=== PATIENT | female | born 1975 | race African-American/Black ===

== ENCOUNTER 2017-03-17 20:44 | Emergency (ER) | payer MEDICAID, OTHER ==
[~2017-03-17] VITALS: Ht 172.7 cm; Wt 85.1 kg
[~2017-03-17 20:44] MED LIST: IBUP800T23 PO; MMW SS; PENI500T PO; ULTR50TA PO; ZITH250T PO
[2017-03-17 20:46] VITALS: BP 148/92; PULSE 102; RESP 16; TEMP 98.9; O2SAT 100
[2017-03-17 21:13] LABS: BLOOD, URINE LARGE (NEG); GLUCOSE,URINE NEG (NEG); KETONE, URINE NEG (NEG); NITRITE,URINE POS (NEG)
[2017-03-17 21:16] LABS: URINE COLOR YELLOW (YELLW/STRAW)
[2017-03-17 21:17] LABS: BACTERIA, URINE MANY /hpf; MUCUS URINE FEW /lpf (OCC); RBC, URINE 15-19 /hpf (0-3); WBC, URINE 100-200 /hpf (0-5)
[2017-03-17 21:18] LABS: COMMENT (UR) CULTURE INDICATED; CULTURE IF INDICATED CULTURE INDICATED
[2017-03-17] MEDS ORDERED: CLON0.1T PO (21:29)
[2017-03-17] MEDS ORDERED: PERC10TA27 PO (21:29)
[2017-03-17] MEDS ORDERED: PHENAZOPYRIDINE HCL 100 MG TAB PO ONE (23:30)
[2017-03-17] MEDS ORDERED: IBUPROFEN 800 MG TAB PO ONE (23:30)
[2017-03-17] MEDS ORDERED: LEVOFLOXACIN 500 MG TAB PO ONE (23:30)
--- NOTE | 2017-03-17 23:35 | PD ---
HPI Chief Complaint: Complaint Time Seen by Provider: 23:34 Travel History International Travel<30 days: No Contact w/Intl Traveler<30days: No Traveled to known affect area: No History of Present Illness HPI 41-year-old female presents to the emergency department for complaint of one month of urinary frequency and dysuria. Patient started developing abdominal discomfort more recently in 5 decided to come to the emergency room for evaluation. No vaginal discharge or vaginal bleeding. Subjective fever and chills. Nausea without vomiting. Patient rates her discomfort with urination 9 /10 intensity. Patient denies . Patient concerned that she might have a communicable disease. No vaginal discharge or vaginal bleeding. PFSH Past Medical History Asthma: Yes Depression: Yes (FROM HUSBANDS ) Diminished Hearing: No Hypertension: Yes Medical other: Yes (BACK PAIN) Immunizations Current: Yes Tetanus Vaccination: Unknown Influenza Vaccination: No ?: Unknown LMP: 03/01/17 : 7 Para: 5 Miscarriage: 1 : 1 Past Surgical History Surgical History: No Previous Surgery Social History Alcohol Use: Yes (SOCIALLY) Tobacco Use: Yes Substance Use: Yes (MARIJUANA) Allergies-Medications (Allergen,Severity, Reaction): Coded Allergies: aspirin (Unverified Allergy, Severe, EYE DISTURBANCES, 03/17/17) Reported Meds & Prescriptions Reported Meds & Active Scripts Active Ibuprofen 800 Mg Tab 800 Mg PO Q8H PRN Pyridium (Phenazopyridine HCl) 100 Mg Tab 100 Mg PO Q8H PRN Cipro (Ciprofloxacin HCl) 500 Mg Tab 500 Mg PO BID 10 Days Reported Clonidine (Clonidine HCl) 0.1 Mg Tab 0.1 Mg PO BID Percocet (Oxycodone-Acetaminophen) 10-325 mg Tab 1 Tab PO Q6H PRN Physical Exam Narrative GENERAL: Well-developed well-nourished female in no acute distress no respiratory distress SKIN: Warm and dry. HEAD: Normocephalic. EYES: No scleral icterus. No injection or drainage. NECK: Supple, trachea midline. No JVD or lymphadenopathy. CARDIOVASCULAR: Regular rate and rhythm without murmurs, gallops, or rubs. RESPIRATORY: Breath sounds equal bilaterally. No accessory muscle use. GASTROINTESTINAL: Abdomen soft, non-tender, nondistended. MUSCULOSKELETAL: No cyanosis, or edema. BACK: Nontender without obvious deformity. No CVA tenderness. Data Data Last Documented VS Vital Signs Date Time Temp Pulse Resp B/P (MAP) Pulse Ox O2 Delivery O2 Flow Rate FiO2 03/17/17 23:59 74 20 145/90 (108) 98 03/17/17 20:46 98.9 Orders Orders Urinalysis - C+S If Indicated (03/17/17 20:59) Ed Urine Pregnancytest Poc (03/17/17 20:59) Urine Culture (03/17/17 21:00) Levofloxacin (Levaquin) (03/17/17 23:30) Phenazopyridine (Pyridium) (03/17/17 23:30) Ibuprofen (Motrin) (03/17/17 23:30) Labs Laboratory Tests Test 03/17/17 21:00 Urine Color YELLOW Urine Turbidity CLEAR Urine pH 6.0 Urine Specific [place] 1.017 Urine Protein 30 mg/dL Urine Glucose (UA) NEG mg/dL Urine Ketones NEG mg/dL Urine Occult Blood LARGE Urine Nitrite POS Urine Bilirubin NEG Urine Leukocyte Esterase MOD Urine RBC 15-19 /hpf Urine WBC 100-200 /hpf Urine Squamous Epithelial Cells 6-8 /hpf Urine Bacteria MANY /hpf Urine Mucus FEW /lpf Microscopic Urinalysis Comment CULTURE INDICATED MDM Medical Decision Making Medical Screen Exam Complete: Yes Emergency Medical Condition: Yes Medical Record Reviewed: Yes Interpretation(s) UA: Positive nitrites positive leukocyte Estrace positive white blood cells positive bacteria culture indicated POC hCG: negative Differential Diagnosis Dysuria, UTI, pyelonephritis, diverticulitis, colitis, ectopic Narrative Course Patient with markedly abnormal urinalysis nontender abdomen without guarding or rebound; patient noted on in triage to have mildly elevated white cell count otherwise vital sounds grossly within normal range: Patient given first dose of oral antibiotic in the emergency department along with peridium and weight- based ibuprofen Diagnosis Primary Impression: UTI (urinary tract infection) Referrals: Primary Care Physician call for appointment Patient Instructions: General Instructions Med/Other Pt SpecificInfo: Prescription(s) given Scripts Ibuprofen (Ibuprofen) 800 Mg Tab 800 MG PO Q8H Y for PAIN GREATER THAN 5, #12 TAB 0 Refills Prov: Natalee Seth MD 03/17/17 Phenazopyridine (Pyridium) 100 Mg Tab 100 MG PO Q8H Y for DYSURIA, #6 TAB 0 Refills Prov: Natalee Seth MD 03/17/17 Ciprofloxacin (Cipro) 500 Mg Tab 500 MG PO BID for Infection for 10 Days, #20 TAB 0 Refills Prov: Natalee Seth MD 03/17/17 Disposition: 01 DISCHARGE HOME Condition: Stable Natalee Seth MD Mar 17, 2017 23:35
[2017-03-17] MEDS ORDERED: CIPR-9 PO (23:37)
[2017-03-17] MEDS ORDERED: IBUP1TAB7 PO (23:37)
[2017-03-17] MEDS ORDERED: PHEN0.4T PO (23:37)
[2017-03-17 23:59] VITALS: BP 145/90
== END 2017-03-18 | disposition home or self-care (01) ==
LOC: PHED 20:44
DX: N39.0 Urinary tract infection, site not specified (principal); B96.20 Unspecified Escherichia coli [E. coli] as the cause of diseases classified elsewhere; I10 Essential (primary) hypertension; Z72.0 Tobacco use
CPT/HCPCS: 81001; 84703; 87077; 87086; 87186; 99284

== ENCOUNTER 2017-07-11 21:20 | Emergency (ER) | payer OTHER ==
[~2017-07-11] VITALS: Ht 175.3 cm; Wt 87.9 kg
[~2017-07-11 21:20] MED LIST changes: +CIPR-9 PO; +CLON0.1T PO; +IBUP1TAB7 PO; -IBUP800T23 PO; -MMW SS; -PENI500T PO; +PERC10TA27 PO; +PHEN0.4T PO; -ULTR50TA PO; -ZITH250T PO
[2017-07-11 21:30] VITALS: BP 154/105; PULSE 113; RESP 20; TEMP 98.2; O2SAT 99
[2017-07-11] MEDS ORDERED: ALBU0.63 NEB (22:18)
[2017-07-11] MEDS ORDERED: SODIUM CHLORIDE 0.9% FLUSH 10 ML FLUSH IVF PRN (22:30)
--- NOTE | 2017-07-11 22:45 | RADRPT ---
EXAM DATE/TIME: 07/11/2017 22:24 [facility] COMPARISON: CHEST PA & LAT, October 05, 2012, 10:37. INDICATIONS : Chest pain. MEDICAL HISTORY : Scoliosis. SURGICAL HISTORY : None. ENCOUNTER: Initial ACUITY: 2 days PAIN SCORE: 7/10 LOCATION: Bilateral chest superior FINDINGS: PA and lateral views of the chest demonstrate a normal-sized cardiac silhouette. There is no effusion , consolidation, or pneumothorax. The bones and soft tissues demonstrate no acute abnormality. CONCLUSION: Normal chest x-ray. Alvarado Casey MD on July 11, 2017 at 22:42 Board Certified Radiologist. This report was verified electronically.
[2017-07-11 23:03] LABS: BILIRUBIN, URINE NEG (NEG); BLOOD, URINE LARGE (NEG); GLUCOSE,URINE NEG (NEG); KETONE, URINE NEG (NEG); NITRITE,URINE NEG (NEG); URINE LEUKOCYTE ESTERASE NEG (NEG)
[2017-07-11 23:06] VITALS: RESP 16; O2SAT 100
[2017-07-11 23:07] VITALS: BP_SYST 184; BP_SYST 192; BP_DIAS 95; BP_DIAS 97; PULSE 114; RESP 16; O2SAT 100
[2017-07-11 23:24] LABS: BASOPHIL # 0.3 TH/MM3 (0-0.2); BASOPHIL % 3.4 % (0.0-2.0); EOSINOPHIL % 0.4 % (0.0-4.0); HEMATOCRIT 39.4 % (35.0-46.0); HEMOGLOBIN 13.2 GM/DL (11.6-15.3); LYMPH % 13.3 % (9.0-44.0); LYMPHOCYTE # 1.3 TH/MM3 (1.0-4.8); MEAN CORPUSCULAR HEMOGLOBIN 31.1 PG (27.0-34.0); MEAN CORPUSCULAR HGB CONC 33.4 % (32.0-36.0); MEAN PLATELET VOLUME 8.8 FL (7.0-11.0); MONO % 2.7 % (0.0-8.0); MONOCYTE # 0.3 TH/MM3 (0-0.9); NEUT % 80.2 % (16.0-70.0); PLATELET COUNT 228 TH/MM3 (150-450); RED BLOOD COUNT 4.23 MIL/MM3 (4.00-5.30); RED CELL DISTRIBUTION WIDTH 13.8 % (11.6-17.2); WHITE BLOOD COUNT 9.9 TH/MM3 (4.0-11.0)
[2017-07-11 23:32] LABS: MUCUS URINE FEW /lpf (OCC); URINE COLOR YELLOW (YELLW/STRAW); WBC, URINE 0-2 /hpf (0-5)
[2017-07-11 23:33] LABS: AMORPHOUS SEDIMENT, URINE FEW; RBC, URINE 15-19 /hpf (0-3)
[2017-07-11 23:37] LABS: CHLORIDE 106 MEQ/L (98-107); SODIUM (NA) 138 MEQ/L (136-145)
[2017-07-11 23:40] LABS: BICARBONATE 23.1 MEQ/L (21.0-32.0); BLOOD UREA NITROGEN 16 MG/DL (7-18); CALCIUM 8.4 MG/DL (8.5-10.1); GLUCOSE,RANDOM 152 MG/DL (74-106); MAGNESIUM 2.2 MG/DL (1.5-2.5)
[2017-07-11 23:44] LABS: CREATININE 0.99 MG/DL (0.50-1.00); GLOMERULAR FILTRATION RATE 75 ML/MIN (>89)
[2017-07-11 23:45] LABS: INTERNATIONAL NORMALIZED RATIO 0.9 RATIO; PROTHROMBIN TIME - PATIENT 9.4 SEC (9.8-11.6)
[2017-07-11 23:48] LABS: TROPONIN I LESS THAN 0.02 NG/ML (0.02-0.05)
[2017-07-12] MEDS ORDERED: SODIUM CHLORID 0.9% 500 ML INJ 500 ML IV ONE
[2017-07-12 00:37] VITALS: BP 152/73; PULSE 97; RESP 14; O2SAT 99
[2017-07-12] MEDS ORDERED: ZITHTAB PO (00:49)
[2017-07-12] MEDS ORDERED: NORV2.5T PO (00:49)
[2017-07-12] MEDS ORDERED: VENTAER INH (00:49)
[2017-07-12] MEDS ORDERED: MEDR4PAK PO (00:49)
--- NOTE | 2017-07-12 00:49 | PD ---
HPI Chief Complaint: Chest Pain Time Seen by Provider: 22:19 Travel History International Travel<30 days: No Contact w/Intl Traveler<30days: No Traveled to known affect area: No History of Present Illness HPI 41-year-old female presents to the emergency department for chest discomfort. Patient also complains of cough congestion sinus pressure drainage. Patient noted to have elevated blood pressure. Patient concerned also about shortness of breath and wheezing states that she feels she has been exposed to mold in her household. PFSH Past Medical History Narrative Medical Depression hypertension tobacco use alcohol use marijuana use; nursing notes reviewed Asthma: Yes Depression: Yes (FROM HUSBANDS ) Diminished Hearing: No Hypertension: Yes Immunizations Current: Yes Tetanus Vaccination: Unknown Influenza Vaccination: No ?: Not LMP: 06/24/17 : 7 Para: 5 Miscarriage: 1 : 1 Past Surgical History Oral Surgery: Yes (WISDOM TEETH) Social History Alcohol Use: Yes (SOCIALLY) Tobacco Use: Yes (2 CIGARS/DAY) Substance Use: Yes (MARIJUANA) Allergies-Medications (Allergen,Severity, Reaction): Coded Allergies: aspirin (Unverified Allergy, Severe, EYE DISTURBANCES, 07/11/17) PT STATES : "IT'S BEEN A LONG TIME SINCE I HAD ASPIRIN SO I'M NOT SURE IF I'M REALLY ALLERGIC TO IT OR NOT" Reported Meds & Prescriptions Reported Meds & Active Scripts Active Zithromax Z-Fransisco (Azithromycin) 250 Mg Dspk 250 Mg PO DIRECTED 500 MG (2 tabs) day 1, then 1 tab days 2-5. Medrol Dosepak (Methylprednisolone) 4 Mg Dspk 4 Mg PO DIRECTED Per Pharmacist direction Ventolin Hfa 18 GM Inh (Albuterol Sulfate) 90 Mcg/Act Aer 2 Puff INH Q4-6H PRN Norvasc (Amlodipine Besylate) 2.5 Mg Tab 2.5 Mg PO DAILY Reported Albuterol Neb (Albuterol Sulfate) 0.63 Mg/3 Ml Neb 0.63 Mg NEB Q4HR NEB PRN Clonidine (Clonidine HCl) 0.1 Mg Tab 0.1 Mg PO BID Review of Systems Except as stated in HPI: all other systems reviewed are Neg Physical Exam Narrative GENERAL: Well-developed well-nourished female no acute distress no respiratory distress SKIN: Warm and dry. HEAD: Normocephalic. EYES: No scleral icterus. No injection or drainage. NECK: Supple, trachea midline. No JVD or lymphadenopathy. CARDIOVASCULAR: Regular rate and rhythm without murmurs, gallops, or rubs. RESPIRATORY: Breath sounds equal bilaterally. No accessory muscle use. GASTROINTESTINAL: Abdomen soft, non-tender, nondistended. MUSCULOSKELETAL: No cyanosis, or edema. BACK: Nontender without obvious deformity. No CVA tenderness. Data Data Last Documented VS Vital Signs Date Time Temp Pulse Resp B/P (MAP) Pulse Ox O2 Delivery O2 Flow Rate FiO2 07/12/17 00:50 07/12/17 00:37 97 14 99 Room Air 07/11/17 21:30 98.2 Orders Orders Electrocardiogram (07/11/17 ) Basic Metabolic Panel (Bmp) (07/11/17 22:19) B-Type Natriuretic Peptide (07/11/17 22:19) Ckmb (Isoenzyme) Profile (07/11/17 22:19) Complete Blood Count With Diff (07/11/17 22:19) Magnesium (Mg) (07/11/17 22:19) Prothrombin Time / Inr (Pt) (07/11/17 22:19) Act Partial Throm Time (Ptt) (07/11/17 22:19) Troponin I (07/11/17 22:19) Ecg Monitoring (07/11/17 22:19) Bilateral Bp Monitoring (07/11/17 22:19) Iv Access Insert/Monitor (07/11/17 22:19) Oximetry (07/11/17 22:19) Oxygen Administration (07/11/17 22:19) Sodium Chloride 0.9% Flush (Ns Flush) (07/11/17 22:30) Chest, Pa & Lat (07/11/17 22:19) Urinalysis - C+S If Indicated (07/11/17 22:19) Ed Urine Pregnancytest Poc (07/11/17 22:19) CKMB (07/11/17 23:00) CKMB% (07/11/17 23:00) Sodium Chlorid 0.9% 500 Ml Inj (Ns 500 M (07/12/17 00:00) Ed Discharge Order (07/12/17 00:46) Labs Laboratory Tests Test 07/11/17 22:31 07/11/17 23:00 Urine Color YELLOW Urine Turbidity CLEAR Urine pH 6.0 Urine Specific [place] 1.017 Urine Protein NEG mg/dL Urine Glucose (UA) NEG mg/dL Urine Ketones NEG mg/dL Urine Occult Blood LARGE Urine Nitrite NEG Urine Bilirubin NEG Urine Leukocyte Esterase NEG Urine RBC 15-19 /hpf Urine WBC 0-2 /hpf Urine Squamous Epithelial Cells 6-8 /hpf Urine Amorphous Sediment FEW Urine Mucus FEW /lpf Microscopic Urinalysis Comment CULT NOT INDICATED White Blood Count 9.9 TH/MM3 Red Blood Count 4.23 MIL/MM3 Hemoglobin 13.2 GM/DL Hematocrit 39.4 % Mean Corpuscular Volume 93.0 FL Mean Corpuscular Hemoglobin 31.1 PG Mean Corpuscular Hemoglobin Concent 33.4 % Red Cell Distribution Width 13.8 % Platelet Count 228 TH/MM3 Mean Platelet Volume 8.8 FL Neutrophils (%) (Auto) 80.2 % Lymphocytes (%) (Auto) 13.3 % Monocytes (%) (Auto) 2.7 % Eosinophils (%) (Auto) 0.4 % Basophils (%) (Auto) 3.4 % Neutrophils # (Auto) 8.0 TH/MM3 Lymphocytes # (Auto) 1.3 TH/MM3 Monocytes # (Auto) 0.3 TH/MM3 Eosinophils # (Auto) 0.0 TH/MM3 Basophils # (Auto) 0.3 TH/MM3 CBC Comment DIFF FINAL Differential Comment Prothrombin Time 9.4 SEC Prothromb Time International Ratio 0.9 RATIO Activated Partial Thromboplast Time 26.6 SEC Blood Urea Nitrogen 16 MG/DL Creatinine 0.99 MG/DL Random Glucose 152 MG/DL Calcium Level 8.4 MG/DL Magnesium Level 2.2 MG/DL Sodium Level 138 MEQ/L Potassium Level 3.6 MEQ/L Chloride Level 106 MEQ/L Carbon Dioxide Level 23.1 MEQ/L Anion Gap 9 MEQ/L Estimat Glomerular Filtration Rate 75 ML/MIN Total Creatine Kinase 147 U/L Creatine Kinase MB 0.9 NG/ML Troponin I LESS THAN 0.02 NG/ML B-Type Natriuretic Peptide 32 PG/ML MDM Medical Decision Making Medical Screen Exam Complete: Yes Emergency Medical Condition: Yes Medical Record Reviewed: Yes Interpretation(s) Last Impressions Chest X-Ray 07/11/17 6379 Signed Impressions: Service Date/Time: Tuesday, July 11, 2017 22:24 - CONCLUSION: Normal chest x-ray. Alvarado Casey MD CBC & BMP Diagram 07/11/17 23:00 Calcium Level 8.4 L, Magnesium Level 2.2 Vital Signs Date Time Temp Pulse Resp B/P (MAP) Pulse Ox O2 Delivery O2 Flow Rate FiO2 07/12/17 00:50 07/12/17 00:37 97 14 152/73 (99) 99 Room Air 07/11/17 23:07 114 16 192/95 (127) 100 Room Air 184/97 (126) 07/11/17 23:06 100 Room Air 07/11/17 23:06 16 100 Room Air 07/11/17 22:18 Room Air 07/11/17 21:30 98.2 113 20 154/105 (121) 99 Differential Diagnosis Chest pain atypical chest pain bronchitis pneumonia PE uncontrolled hypertension Narrative Course Specimens collected and sent for resulting lab values found to be in normal range Patient stable for outpatient management start on antihypertensive for elevation of blood pressure encouraged to not use decongestants Diagnosis Primary Impression: Bronchitis Additional Impression: Unspecified essential hypertension Referrals: Primary Care Physician 2 days Patient Instructions: General Instructions Additional Instructions: Increase fluid hydration Take medications as prescribed Return to the emergency department for any concerns or change in condition No work 1 day Take acetaminophen/Tylenol as needed for fever 100.4F or greater Take blood pressure medication as prescribed Follow-up with your primary care provider Med/Other Pt SpecificInfo: Prescription(s) given Scripts Amlodipine (Norvasc) 2.5 Mg Tab 2.5 MG PO DAILY for Blood Pressure Management, #30 TAB 0 Refills Prov: Natalee Seth MD 07/12/17 Azithromycin (Zithromax Z-Fransisco) 250 Mg Dspk 250 MG PO DIRECTED for Infection, #1 DSPK 0 Refills 500 MG (2 tabs) day 1, then 1 tab days 2-5. Prov: Natalee Seth MD 07/12/17 Methylprednisolone Dosepak (Medrol Dosepak) 4 Mg Dspk 4 MG PO DIRECTED, #1 DSPK 0 Refills Per Pharmacist direction Prov: Natalee Seth MD 07/12/17 Albuterol 18 GM Inh (Ventolin Hfa 18 GM Inh) 90 Mcg/Act Aer 2 PUFF INH Q4-6H Y for SHORTNESS OF BREATH, #1 INHALER 0 Refills Prov: Natalee Seth MD 07/12/17 Disposition: 01 DISCHARGE HOME Condition: Stable Natalee Seth MD Jul 12, 2017 00:49
--- NOTE | 2017-07-12 06:48 | EKG ---
Date Performed: 07/11/2017 Time Performed: 21:27:37 PTAGE: 41 years EKG: SINUS TACHYCARDIA POSSIBLE LEFT ATRIAL ENLARGEMENT ABNORMAL RHYTHM ECG PREVIOUS TRACING : 07/03/2012 10.12 No significant change from previous tracing noted. DOCTOR: Iban Bauer Interpretating Date/Time 07/12/2017 06:48:12
== END 2017-07-12 01:00 | disposition home or self-care (01) ==
LOC: PHED 21:20
DX: J45.909 Unspecified asthma, uncomplicated (principal); I10 Essential (primary) hypertension; R94.31 Abnormal electrocardiogram [ECG] [EKG]; M41.9 Scoliosis, unspecified; F32.9 Major depressive disorder, single episode, unspecified; F17.290 Nicotine dependence, other tobacco product, uncomplicated; Z79.899 Other long term (current) drug therapy
CPT/HCPCS: 71046; 80048; 81001; 82550; 82552; 83735; 83880; 84484; 84703; 85025; 85610; 85730; 93005; 96360; 99285; J7040